=== PATIENT | female | born 2000 | race Caucasian/White ===

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

== ENCOUNTER 2018-01-03 17:20 | Emergency (ER) | payer OTHER ==
[2018-01-03 17:45] VITALS: BP 126/75; PULSE 62; TEMP 98.8; BMI 29.0
--- NOTE | 2018-01-03 17:46 | PDOC ---
Rapid Medical Evaluation Time Seen by Provider: 01/03/18 17:42 Medical Evaluation: Allergies Allergy/AdvReac Type Severity Reaction Status Date / Time No Known Allergies Allergy Verified 01/03/18 17:41 01/03/18 17:42 Pt presents to the ED with RUQ pain and epigastric pain for one month. Pt states that today the pain is worse. Rates the pain a 9/10. States that the pain is worse after eating and has occasional diarrhea. Mother had gall bladder removed. Denies fevers Exam: discomfort to the RUQ. ambulatory, [id number] Orders: Labs, urine Pt to proceed to the ED for further evaluation Discharge Disposition - Diagnosis Abdominal pain - Referrals - Patient Instructions - Post Discharge Activity
[2018-01-03 19:52] LABS: BASO % 0.7 % (0-2.0); EOS % 3.4 % (0-4.5); HEMATOCRIT 40.5 % (32.4-45.2); HEMOGLOBIN 13.6 GM/dL (10.7-15.3); LYMPH % 29.5 % (8-40); MCH 29.4 pg (25.7-33.7); MCHC 33.6 g/dl (32.0-36.0); MEAN CELL VOLUME 87.7 fl (80-96); MEAN PLT VOLUME 9.9 fl (7.5-11.1); MONO % 5.4 % (3.8-10.2); PLATELET COUNT 252 K/MM3 (134-434); RBC 4.62 M/mm3 (3.60-5.2); RDW 13.4 % (11.6-15.6); WHITE BLOOD COUNT 7.9 K/mm3 (4.0-10.0)
[2018-01-03 20:02] LABS: INR 1.04 (0.82-1.09); PROTHROMBIN TIME (PATIENT) 11.8 SEC (9.7-13.0)
--- NOTE | 2018-01-03 20:09 | PDOC ---
History of Present Illness - General Chief Complaint: Pain, Acute Stated Complaint: NAUSEA/VOMITING Time Seen by Provider: 01/03/18 17:42 History Source: Patient - History of Present Illness Initial Comments: 01/03/18 20:04 17 year old female with no PMH presents to ED complaining of RUQ pain x1 month. She admits to nausea, vomiting, diarrhea, headache and joint pain. Her abdominal pain is intermittent, aggravated by movement, with no alleviating factors, currently a 6/10. She denies fever, chills, cough, SOB, dysuria, vaginal discharge, vaginal bleeding. She was seen by her PCP for the same symptoms recently, labwork revealed "liver inflammation", she is scheduled for an outpatient RUQ ultrasound Monday 01/08, but states her pain got so severe that she came to the ED. Past History - Past Medical History Allergies/Adverse Reactions: Allergies Allergy/AdvReac Type Severity Reaction Status Date / Time No Known Allergies Allergy Verified 01/03/18 17:41 Home Medications: Ambulatory Orders No Home Medications 0 dose .ROUTE UTDICT 10/21/12 Ranitidine HCl [Zantac] 150 mg PO DAILY 14 Days #14 tablet 01/03/18 COPD: No - Immunization History Immunization Up to Date: Yes - Suicide/Smoking/Psychosocial Hx Smoking Status: No Smoking History: Never smoked Have you smoked in the past 12 months: No Number of Cigarettes Smoked Daily: 0 Hx Alcohol Use: No Drug/Substance Use Hx: No Substance Use Type: None Review of Systems - Review of Systems Able to Perform ROS?: Yes Comments:: 01/03/18 20:08 General: denies fever, chills, night sweats, generalized weakness. HEENT: denies sore throat, rhinorrhea, ear pain. Heart: denies chest pain, palpitations, syncope, lower extremity swelling. Respiratory: denies shortness of breath, cough, sputum production, hematemesis. Abdomen: admits to abdominal pain, nausea, vomiting, diarrhea. denies constipation, blood in stool. : denies dysuria, urinary frequency, hematuria. Musculoskeletal: admits to joint pain. denies muscle pain, joint swelling. Neurological: admits to headache. denies dizziness, numbness, tingling. Skin: denies rash, laceration, abrasion. *Physical Exam - Vital Signs Last Vital Signs Temp Pulse Resp BP Pulse Ox 98.8 F 62 18 126/75 98 01/03/18 17:41 01/03/18 17:41 01/03/18 17:41 01/03/18 17:41 01/03/18 17:41 - Physical Exam Comments: 01/03/18 20:10 Appearance: comfortable. HEENT: head is normocephalic, atraumatic. EOMI. PERRLA. Neck: supple without lymphadenopathy Heart: regular rhythm. no tachycardia. no murmurs, rubs or gallops. Lungs: clear to auscultation bilaterally. no crackles, rhonchi or wheezing. no stridor. Abdomen: soft, nontender. decreased bowel sounds. no rebound, guarding, masses. mccann's sign negative. Extremities: Peripheral pulses intact. No lower extremity edema. Neurological: Alert. Oriented x3. CN 2-12 grossly intact. Moves all four extremities. ED Treatment Course - LABORATORY CBC & Chemistry Diagram: 01/03/18 19:09 01/03/18 19:09 - ADDITIONAL ORDERS Additional order review: Laboratory Results 01/03/18 19:09 PT with INR 11.80 INR 1.04 01/03/18 19:09 RBC 4.62 MCV 87.7 MCHC 33.6 RDW 13.4 MPV 9.9 D Neutrophils % 61.0 Lymphocytes % 29.5 Monocytes % 5.4 Eosinophils % 3.4 Basophils % 0.7 - RADIOLOGY Radiology Studies Ordered: Category Date Time Status GALLBLADDER US [US] Stat Ultrasound 01/03/18 20:00 Ordered Medical Decision Making - Medical Decision Making 01/03/18 20:12 17 year old female with no past medical history presenting for RUQ abdominal pain associated with nausea, vomiting, diarrhea, headache, joint pain. Mother was 25 when she had a cholecystectomy. Pending labs, RUQ ultrasound. 01/03/18 21:27 Labs normal. RUQ US - Hepatomegaly. Fatty liver. Pt will be discharged with instructions to keep a food diary and follow up with her primary care doctor as well as Dr. Chavez. *DC/Admit/Observation/Transfer Diagnosis at time of Disposition: Abdominal pain - Discharge Dispostion Disposition: HOME Condition at time of disposition: Stable Decision to Admit order: No - Prescriptions Prescriptions: Ranitidine HCl [Zantac] 150 mg PO DAILY 14 Days #14 tablet - Referrals Referrals: Se Chavez MD [Staff Physician] - - Patient Instructions Additional Instructions: You were seen today for abdominal pain. You were diagnosed with fatty liver. Please keep a food diary. I sent Zantac to your pharmacy for you to take daily for you abdominal pain. I provided you with copies of your labs and ultrasound report. I have provided you with a referral for a Ways Operator, Dr. Chavez. Please follow up with him within 7 days. Please follow up with your primary care provider within 7 days and bring the paperwork given to you today with you. Please have your cholesterol levels checked outpatient. Please return to the Emergency Department for any new, worsening or concerning symptoms. - Post Discharge Activity
[2018-01-03 20:19] LABS: ALBUMIN 4.3 g/dl (3.4-5.0); ANION GAP 9 (8-16); BLOOD UREA NITROGEN 7 mg/dL (7-18); CALCIUM 9.7 mg/dL (8.5-10.1); CHLORIDE 103 mmol/L (98-107); CO2 26 mmol/L (21-32); CREATININE 0.6 mg/dL (0.55-1.02); GLUCOSE,RANDOM 75 mg/dL (74-106); POTASSIUM 4.1 mmol/L (3.5-5.1); SGOT/AST 114 U/L (15-37); SGPT/ALT 160 U/L (12-78); SODIUM 138 mmol/L (136-145)
[2018-01-03 20:21] LABS: ALK PHOS 80 U/L (45-117); BILIRUBIN,TOTAL 0.6 mg/dL (0.2-1.0)
[2018-01-03 20:22] LABS: URINE APPEARANCE CLEAR; URINE BILIRUBIN NEGATIVE (<2.0 mg/dL); URINE COLOR LTYELLOW; URINE GLUCOSE (UA) NEGATIVE (NEGATIVE); URINE KETONE NEGATIVE (NEGATIVE); URINE LEUK ESTERASE TRACE (NEGATIVE); URINE NITRITE NEGATIVE (NEGATIVE); URINE PROTEIN NEGATIVE (NEGATIVE); URINE UROBILINOGEN NEGATIVE mg/dL (0.2-1.0)
--- NOTE | 2018-01-03 20:29 | PDOC ---
Attending Attestation - Resident Resident Name: Zandra Storey - ED Attending Attestation I have performed the following: I have examined & evaluated the patient, The case was reviewed & discussed with the resident, I agree w/resident's findings & plan, Exceptions are as noted - Medical Decision Making 01/03/18 20:29 I, Dr. Trista Bullock, DO, attest that this document has been prepared under my direction and personally reviewed by me in its entirety. I further attest, that it accurately reflects all work, treatment, procedures and medical decision -making performed by me. 01/03/18 21:30 a/p: 17yo female with a 3 year hx of intermittent episodes of epigastric pain/n/ v -suspect biliary disease vs pud vs gastritis -will send labs, RUQ u/s -will give GI cocktail -will monitor and reassess 01/03/18 21:35 ultrasound shows fatty liver will d/c to home with zantac discussed need for GI follow up discussed keeping a food journal discussed all reasons to return to the Ed and need for follow up answered all questions <Trista Bullock - Last Filed: 01/03/18 21:30> - HPI HPI: 01/03/18 23:33 The patient is a 17-year-old female, with no past medical history, who presents to the ED with 1 month of right upper quadrant pain. The patient states that the pain is intermittent, 6/10 in severity, exacerbated with movement, and accompanied by nausea, vomiting, and diarrhea. The patient did follow-up with her PCP for this pain and had recent lab work done. She is scheduled for a right upper quadrant US on Monday01/08/18. The patient denies any fever or chills. She denies any chest pain or shortness of breath. She denies any urinary complaints. Allergies: NKA - Physicial Exam PE: 01/03/18 23:33 GENERAL: Awake, alert, and fully oriented, in no acute distress HEAD: No signs of trauma EYES: PERRLA, EOMI, sclera anicteric, conjunctiva clear ENT: Auricles normal inspection, hearing grossly normal, nares patent, oropharynx clear without exudates. Moist mucosa NECK: Normal ROM, supple, no lymphadenopathy, JVD, or masses LUNGS: Breath sounds equal, clear to auscultation bilaterally. No wheezes, and no crackles HEART: Regular rate and rhythm, normal S1 and S2, no murmurs, rubs or gallops ABDOMEN: (+)Mild epigastric tenderness to palpation. Soft, normoactive bowel sounds. No guarding, no rebound. No masses EXTREMITIES: Normal range of motion, no edema. No clubbing or cyanosis. No cords, erythema, or tenderness NEUROLOGICAL: Cranial nerves II through XII grossly intact. Normal speech, normal gait SKIN: Warm, Dry, normal turgor, no rashes or lesions noted <Martha Kim - Last Filed: 01/03/18 23:34> Attestations - Attestations 01/03/18 23:34 Documentation prepared by Martha Kim, acting as medical device sales representative for Trista Bullock DO. <Martha Kim - Last Filed: 01/03/18 23:34>
[2018-01-03 20:34] LABS: EPI CELLS RARE /HPF (FEW); URINE BACTERIA RARE /hpf (NONE SEEN)
[2018-01-03] MEDS ORDERED: LIDOCAINE VISCOUS 2% ORAL/TOP 20 ML UNIT-DOSE CUP MM ONE (21:18)
[2018-01-03] MEDS ORDERED: MAG HYDROX/AL HYDROX/SIMETH 30 ML UNIT-DOSE CUP PO ONE (21:18)
[2018-01-03] MEDS ORDERED: RANITIDINE HCL 150 MG TABLET (FP) PO ONE (21:18)
[2018-01-03] MEDS ORDERED: RANITIDINE HCL 150 MG TABLET (FP) ONE (21:43)
[2018-01-03] MEDS ORDERED: MAG HYDROX/AL HYDROX/SIMETH 30 ML UNIT-DOSE CUP ONE (21:43)
[2018-01-03] MEDS ORDERED: LIDOCAINE VISCOUS 2% ORAL/TOP 20 ML UNIT-DOSE CUP ONE (21:43)
== END 2018-01-03 21:50 | disposition home or self-care (01) ==
LOC: JER 17:20
DX: R10.9 Unspecified abdominal pain (principal)
CPT/HCPCS: 36415; 76705-TC; 80053; 81003; 81015; 83690; 84703; 85025; 85610; 87086; 99283-25

== ENCOUNTER 2021-05-08 17:21 | Emergency (ER) | payer OTHER ==
[2021-05-08 17:37] VITALS: TEMP 99.7; BMI 29.2
[2021-05-08] MEDS ORDERED: SODIUM CHLORIDE 0.9% 500 ML INFUS.BAG IV ONE (18:23)
[2021-05-08] MEDS ORDERED: KETOROLAC TROMETHAMINE 30 MG/1 ML VIAL IVPUSH ONE (18:23)
[2021-05-08] MEDS ORDERED: KETOROLAC TROMETHAMINE 30 MG/1 ML VIAL ONE (18:43)
[2021-05-08 18:59] LABS: BASO % 0.2 % (0-2.0); EOS % 0.1 % (0-4.5); HEMATOCRIT 39.4 % (32.4-45.2); HEMOGLOBIN 13.7 GM/dL (10.7-15.3); LYMPH % 12.2 % (8-40); MCH 29.8 pg (25.7-33.7); MCHC 34.7 g/dl (32.0-36.0); MEAN CELL VOLUME 85.9 fl (80-96); MEAN PLT VOLUME 8.6 fl (7.5-11.1); MONO % 10.7 % (3.8-10.2); NEUT % 76.8 % (42.8-82.8); PLATELET COUNT 166 10^3/uL (134-434); RBC 4.59 M/mm3 (3.60-5.2); RDW 13.3 % (11.6-15.6); WHITE BLOOD COUNT 4.7 K/mm3 (4.0-10.0)
[2021-05-08 19:03] LABS: EPI CELLS 27 /uL (0-25.1); HYALINE CASTS 4 /uL (0-3.1); PH,URINE >= 9.0 (5.0-8.0); URINE APPEARANCE CLEAR; URINE BACTERIA 807 /uL (0-1359); URINE BILIRUBIN NEGATIVE (NEGATIVE); URINE COLOR DK YELLOW; URINE GLUCOSE (UA) NEGATIVE (NEGATIVE); URINE KETONE 2+ (NEGATIVE); URINE LEUK ESTERASE TRACE (NEGATIVE); URINE NITRITE NEGATIVE (NEGATIVE); URINE PROTEIN 2+ (NEGATIVE); URINE RBC 10 /uL (0-23.9); URINE WBC 12 /uL (0-25.8)
[2021-05-08 19:04] LABS: HCG,QUALITATIVE URINE Negative
[2021-05-08] MEDS ORDERED: LACTATED RINGERS SOLUTION 1000 ML INFUS.BAG IV ONE (19:15)
[2021-05-08 19:16] LABS: ALBUMIN 3.8 g/dl (3.4-5.0); BLOOD UREA NITROGEN 6.8 mg/dL (7-18); CALCIUM 8.5 mg/dL (8.5-10.1)
[2021-05-08] MEDS ORDERED: POTASSIUM CHLORIDE ORAL LIQUID 20 MEQ/15 ML PO ONE (19:17)
[2021-05-08 19:19] LABS: CREATININE 0.7 mg/dL (0.55-1.3)
[2021-05-08 19:21] LABS: BILIRUBIN,TOTAL 0.8 mg/dL (0.2-1); TOT PROT 7.4 g/dl (6.4-8.2)
[2021-05-08] MEDS ORDERED: KCL 10 MEQ IVPB 10 MEQ/100 ML INFUS.BAG IVPB SCH (19:30)
[2021-05-08] MEDS ORDERED: POTASSIUM CHLORIDE ORAL LIQUID 20 MEQ/15 ML ONE (19:30)
[2021-05-08] MEDS ORDERED: ACETAMINOPHEN 1000 MG/100 ML VIAL IVPB ONE (19:51)
[2021-05-08] MEDS ORDERED: ACETAMINOPHEN INJECTION 100 ML IVPB ONE (19:54)
[2021-05-08 20:34] VITALS: BP 115/72; PULSE 74
== END 2021-05-08 20:35 | disposition home or self-care (01) ==
LOC: JER 17:21
PROC: 3E0333Z Introduction of Anti-inflammatory into Peripheral Vein, Percutaneous Approach (ICD-10-PCS; principal; 2021-05-08)
PROC: 3E033NZ Introduction of Analgesics, Hypnotics, Sedatives into Peripheral Vein, Percutaneous Approach (ICD-10-PCS; 2021-05-08)
PROC: 3E033GC Introduction of Other Therapeutic Substance into Peripheral Vein, Percutaneous Approach (ICD-10-PCS; 2021-05-08)
DX: A08.4 Viral intestinal infection, unspecified (principal)
CPT/HCPCS: 36415; 80053; 81003; 83690; 84703; 85025; 87086; 96365; 96375; 99284-25; C9803; J0131; U0003; U0005